=== PATIENT | male | born 2000 | race Caucasian/White ===

== ENCOUNTER 2021-10-31 13:05 | Emergency (ER) | payer MEDICARE, OTHER ==
[~2021-10-31] VITALS: Ht 182 cm; Wt 136.0 kg
--- NOTE | 2021-10-31 13:10 | ED Lower Extremity ---
General Stated Complaint: LEFT ANKLE INJ History of Present Illness Date Seen by Provider: Oct 31, 2021 Time Seen by Provider: 13:08 Initial Comments 21-year-old male presents with left ankle injury. Patient reports that happened yesterday while he was at the pool. Patient was going off the diving board when he slipped and twisted his ankle and had his ankle hit by the board itself. Reports that today he just has a hard time bearing weight and ambulate on it. He has some swelling diffusely around the ankle. Minimal bruising. He suffered no other injury. Allergies and Home Medications Allergies Coded Allergies: No Known Drug Allergies (Unverified , 10/31/21) Patient Home Medication List Home Medication List Reviewed: Yes Review of Systems Constitutional: no symptoms reported EENTM: no symptoms reported Respiratory: no symptoms reported Cardiovascular: no symptoms reported Gastrointestinal: no symptoms reported Genitourinary: no symptoms reported Musculoskeletal: see HPI Skin: see HPI Psychiatric/Neurological: No Symptoms Reported Physical Exam Vital Signs Vital Signs - First Documented 10/31/21 13:13 Temp 36.9 Pulse 101 Resp 16 B/P (MAP) 132/77 (95) Pulse Ox 96 O2 Delivery Room Air Capillary Refill : Height, Weight, BMI Height: '" Weight: lbs. oz. kg; BMI Method: General Appearance: WD/WN, no apparent distress HEENT: PERRL/EOMI Neck: full range of motion, supple Cardiovascular: normal peripheral pulses, regular rate, rhythm Respiratory: lungs clear, normal breath sounds Gastrointestinal: non tender, soft Hips: bilateral hip non-tender Legs: bilateral leg non-tender Knees: bilateral knee non-tender Ankles: right ankle non-tender, right ankle normal inspection, right ankle normal range of motion, right ankle no evidence of injury; left ankle ecchymosis, left ankle pain, left ankle soft tissue tenderness, left ankle swelling Feet: bilateral foot non-tender Neurologic/Psychiatric: alert, normal mood/affect, oriented x 3 Skin: ecchymosis (Mild left medial ankle) Progress/Results/Core Measures Results/Orders My Orders Orders - WIL ALBA DO Ankle 3 View Left (10/31/21 13:10) Ortho Glass (10/31/21 13:35) Crutches (10/31/21 13:35) Vital Signs/I&O 6/20/22 13:13 Temp 36.9 Pulse 101 Resp 16 B/P (MAP) 132/77 (95) Pulse Ox 96 O2 Delivery Room Air Progress Progress Note : Progress Note X-ray shows medial malleolus fracture with some questionable joint widening. Patient will be placed in a sugar-tong and posterior splint along with crutches. Patient instructed to be nonweightbearing. He was recommended follow-up with Edwin Hernandez for further outpatient treatment in the next couple days. Patient was stable and discharged home Departure Impression Primary Impression: Closed fracture of medial malleolus of left ankle Qualified Codes: S82.55XA - Nondisplaced fracture of medial malleolus of left tibia, initial encounter for closed fracture Disposition: HOME, SELF-CARE Condition: Stable Departure-Patient Inst. Patient Instructions: Ankle Fracture ED Add. Discharge Instructions: Please do not bear weight on left foot and leg until cleared by [facility] Hernandez Please call [facility] Hernandez upon discharge to arrange for outpatient follow-up Keep left leg elevated when not ambulating Tylenol or ibuprofen as needed for discomfort WIL ALBA DO Oct 31, 2021 13:10
[2021-10-31 13:13] VITALS: BP 132/77
--- NOTE | 2021-10-31 13:34 | Diagnostic Imaging Report ---
INDICATION: Ankle pain. Unable to bear weight. No comparison available FINDINGS: There is a transversely oriented fracture demonstrated of the medial malleolus. There is abnormal widening of the ankle mortise suggesting associated ligamentous injury. Distal fibula appears intact. The morphology of the talar dome appears appropriate. The visualized portion of the hindfoot demonstrates no acute process. There is diffuse ankle soft tissue swelling. IMPRESSION: Transversely oriented fracture of the medial malleolus with abnormal widening of the ankle mortise suggesting ligamentous injury. Distal fibula appears intact, and there is normal morphology of the talar dome. Dictated by: Dictated on workstation # [id number]
== END 2021-10-31 14:05 | disposition home or self-care (01) ==
LOC: ER FS 13:11
DX: S82.55XA Nondisplaced fracture of medial malleolus of left tibia, initial encounter for closed fracture (principal); W01.198A Fall on same level from slipping, tripping and stumbling with subsequent striking against other object, initial encounter; X50.1XXA Overexertion from prolonged static or awkward postures, initial encounter; W21.4XXA Striking against diving board, initial encounter; Y92.34 Swimming pool (public) as the place of occurrence of the external cause
CPT/HCPCS: 29515; 73610